=== PATIENT | female | born 1965 | race Two or more races ===

== ENCOUNTER 2024-08-19 00:19 | Emergency (ER) | payer MEDICAID, SELFPAY ==
[2024-08-19 00:37] VITALS: BP 122/68; PULSE 88; RESP 18; TEMP 36.9; O2SAT 98; BMI 18.1
--- NOTE | 2024-08-19 00:41 | XR_ITS ---
Examination: PA lateral chest 2 views Technique: Upright PA lateral chest 2 views Exam date and time: August 19, 2024 1252 hrs. Indications: Coughing fever weakness beginning 3 days ago. Findings: Normal heart size Moderate hyperexpansion Mild opacity in the lingular segment on the lateral view Right lung clear Impression: Early pneumonia lingular segment left upper lobe
--- NOTE | 2024-08-19 00:43 | PD.EDRME ---
Rapid Medical Screening Exam RME Arrival date/time: 08/19/24 00:19 59 year old female present to Ed for c/o of cough for 3 days. + n/v I have greeted and performed a focused initial assessment of this patient. A comprehensive ED assessment and evaluation of the patient, analysis of all test results, and completion of the medical decision making process will be conducted by additional ED providers. Chief Complaint: Flu Like Symptoms Time Seen by Provider: 08/19/24 00:23 Vital signs: Vital Signs Temperature 98.5 F 08/19/24 00:37 Pulse Rate 88 08/19/24 00:37 Respiratory Rate 18 08/19/24 00:37 Blood Pressure 122/68 08/19/24 00:37 Pulse Oximetry (%) 98 08/19/24 00:37 Oxygen Delivery Method Room Air 08/19/24 00:37
[2024-08-19] MEDS: ONDANSETRON ODT 4 MG TABRAP PO ×2 (01:04→04:43)
[2024-08-19 01:16] LABS: Basophils % (Auto) 0 % (0-2.5); Eosinophils # (Auto) 0.2 Thou/mm3 (0.0-0.5); Eosinophils % (Auto) 1 % (0-10); Hematocrit 42.1 % (36.0-46.0); Hemoglobin 14.2 g/dL (12.0-16.0); Immature Granulocytes % (Auto) 0 % (0-0); Immature Granulocytes Auto 0.04 Thou/mm3 (0.00-0.00); Lymphocytes # (Auto) 1.5 Thou/mm3 (1.0-4.8); Lymphocytes % (Auto) 11 % (10-50); Mean Corpuscular HGB Conc 33.7 g/dl (31.0-37.0); Mean Corpuscular Volume 86 fL (80-100); Monocytes # (Auto) 0.9 Thou/mm3 (0.0-0.8); Monocytes % (Auto) 6 % (0-12); Neutrophils # (Auto) 11.6 Thou/mm3 (1.8-7.7); Neutrophils % (Auto) 81 % (37-80); Nucleated Red Blood Cell % 0 /100 WBC (0); Platelet Count 272 Thou/mm3 (140-440); RDW Standard Deviation 40.3 fL (36.4-46.3); Red Blood Count 4.89 Miln/mm3 (4.00-5.20); White Blood Count 14.3 Thou/mm3 (3.6-11.0)
[2024-08-19 01:31] LABS: Alanine Aminotransferase 18 U/L (10-49); Albumin, Serum 4.6 gm/dL (3.4-4.8); Albumin/Globulin Ratio 1.4 (1.2-2.2); Alkaline Phosphatase 121 U/L (46-116); Anion Gap 9 (7-16); Aspartate Amino Transferase 24 U/L (0-34); BUN/Creatinine Ratio 22 Ratio (12-20); Bilirubin,Total 0.4 mg/dL (0.3-1.2); Blood Urea Nitrogen 13 mg/dL (9-23); Calcium 8.7 mg/dL (8.3-10.6); Calcium (Corrected) 8.7 mg/dL (8.5-10.1); Carbon Dioxide 23.5 mMol/L (20.0-31.0); Chloride 106 mMol/L (98-107); Creatinine (Component) 0.6 mg/dL (0.6-1.3); Estimated Creatinine Clearance 63.5 mL/min (>60); Globulin 3.3 gm/dL (2.3-3.5); Glucose 118 mg/dL (74-106); Lipase 50 U/L (12-53); Osmolality,Calculated 276 (275-295); Potassium 3.2 mMol/L (3.4-5.1); Sodium 138 mMol/L (136-145); Total Protein 7.9 gm/dL (5.7-8.2); Troponin I < 0.002 ng/mL (0.0-0.045); eGFR > 60 See Note
--- NOTE | 2024-08-19 02:16 | PD.EDURI ---
Upper Respiratory Inf. RME/HPI General Chief Complaint: Flu Like Symptoms Stated Complaint: COUGHING X 3 DAYS,VOMITING Time Seen by Provider: 08/19/24 00:23 Arrival date/time: 08/19/24 00:19 RME / HPI RME / HPI Narrative: 08/19/24 00:19 59 year old female present to Ed for c/o of cough for 3 days. + n/v I have greeted and performed a focused initial assessment of this patient. A comprehensive ED assessment and evaluation of the patient, analysis of all test results, and completion of the medical decision making process will be conducted by additional ED providers. ------ Dr. Carlos?s Main ED Evaluation: 59yo female presents to the ED for complaints of nausea and vomiting x 1 day. Patient states she's had 5 episodes of vomiting, 3 being at home and 2 here in the ED. Patient reports associated 2 episodes of diarrhea. Patient denies any hematemesis, hematochezia, fever, chills or any other associated symptoms. She denies any history of tobacco use. Patient states she has 2 family members at home with similar symptoms. Related Data Previous Rx's ?Medication ?Instructions ?Recorded benzonatate 100 mg capsule 100 mg PO TID #14 caps 01/17/23 ondansetron 4 mg disintegrating 4 mg PO Q8H PRN nausea and 08/19/24 tablet vomiting #10 tabs Allergies Allergy/AdvReac Type Severity Reaction Status Date / Time Penicillins Allergy Unknown Verified 08/19/24 00:22 Review of Systems Review of Systems Systems Reviewed: All systems reviewed, normal except as documented Narrative Review of Systems: Gen: No fever, no chills, no weight loss EYES: No discharge, no visual changes, no pain HEENT: No ear pain, no congestion, no sore throat PULM: No shortness of breath, no cough, no congestion CV: No chest pain, no dyspnea on exertion, no palpitations GI: + nausea, + vomiting, + diarrhea, no pain, no constipation : No frequency, no urgency, no dysuria Musc/skel: No joint pain, no back pain Skin: No rash Psyc: No hallucinations, no depression Heme/Lymph: No easy bleeding or bruising tendencies Neuro: No weakness, no headache Past Medical History Past Medical History CARDIAC: Negative Congestive Heart Failure RESPIRATORY: Positive Pneumonia; Negative Chronic Obstructive Pulmonary Disease (COPD) GENITOURINARY: Negative Renal Disease ENDOCRINE: Negative Diabetes Mellitus Type 1 or Diabetes Mellitus Type 2 HEMATOLOGIC: Positive Anemia OTHER HISTORY: Positive Blood Transfusions Surgical History SURGICAL: Positive Tubal Ligation Social History SMOKING STATUS: Never smoker SUBSTANCE USE: does not use ED Exam Narrative Physical exam: GENERAL APPEARANCE: alert and oriented x 4, well-developed, well-nourished, no acute distress HEENT: Normocephalic, atraumatic; pupils equal, round, reactive to light; EOMI; mucous membranes pink, moist; oropharynx clear NECK: Supple LUNGS: CTABL; no wheezes, no rales, no rhonchi HEART: Regular rate, regular rhythm; normal S1, S2; no murmurs ABDOMEN: non distended; normal BS; soft, no tenderness, no guarding, no rebound; no masses, no organomegaly, no hernia BACK: no CVA tenderness EXTREMITIES: atraumatic; no edema NEUROLOGIC: awake; alert and oriented x4; cranial nerves II-XII grossly intact; no focal sensory or motor deficits PSYCHIATRIC: appropriate mood and affect SKIN: warm, dry, normal color; no rashes Course Course Course Narrative: CXR is ordered for determining the etiology of cough. 0541: Patient passed her PO trial. Quality Measures none Orders Category Date Time Status Bedside COVID-19 Antigen Test NOW Care 08/19/24 00:41 Completed Bedside Influenza A&B Antigen Test NOW Care 08/19/24 00:42 Completed EKG (ED ONLY) *Do not use* NOW Care 08/19/24 00:42 Completed EKG (ED Only) Stat Exams 08/19/24 00:41 Ordered XR abdomen flat and uprght Stat Exams 08/19/24 04:30 Completed XR chest 2V Stat Exams 08/19/24 00:41 Completed CBC Stat Lab 08/19/24 01:04 Completed CMP [Comprehensive Metabolic Panel] Stat Lab 08/19/24 01:04 Completed Lipase Stat Lab 08/19/24 01:04 Completed Troponin I Stat Lab 08/19/24 01:04 Completed Ondansetron Odt [Zofran Odt] Med 08/19/24 00:41 Discontinued 4 mg PO X1 ONE Ondansetron Odt [Zofran Odt] Med 08/19/24 04:30 Discontinued 4 mg PO X1 ONE Vital Signs Vital signs: Vital Signs Temperature 98.5 F 08/19/24 00:37 Pulse Rate 88 08/19/24 00:37 Respiratory Rate 18 08/19/24 00:37 Blood Pressure 122/68 08/19/24 00:37 Pulse Oximetry (%) 98 08/19/24 00:37 Oxygen Delivery Method Room Air 08/19/24 00:37 Pulse ox is 98% on room air, which is normal according to my interpretation. Upper Respiratory Infection MDM Narrative MDM Narrative:: Scribe Attestation: 08/19/24 - Angela Guerrier am scribing for and in the presence of Dr. Carlos. Patient data External records reviewed:: [facility] previous records (Per chart review, patient was seen here on 01/17/23 for URI.) Clinical information provided by:: patient Social determinants that could affect healthcare access:: none Patient has the following chronic illnesses:: none How is presenting disease/condition affected by chronic disease/condition?: no chronic disease Evaluation data The following diagnostics were reviewed and interpreted by me:: lab results, radiology exam(s) and EKG tracing(s) Lab and/or radiology exams considered but not ordered:: none Interpretation Summary: WBC count is elevated at 14.3, Potassium is slightly low at 3.2, troponin is normal, Bedside COVID and Influenza are negative, according to my interpretation. CXR is negative for cardiomegaly, infiltrates, pleural effusions or any other acute cardiopulmonary findings, according to my interpretation. EKG done at 0049, sinus rhythm, rate of 85, normal axis, normal intervals, no acute ST or T wave changes, no STEMI, according to my interpretation. Medications / Prescriptions Medications or Prescriptions considered but not ordered:: none Medication administrations:: Medication Administration History Discontinued Medications Ondansetron HCl (Ondansetron Odt 4 Mg Tabrap) 4 mg PO X1 ONE; Protocol Stop: 08/19/24 00:42 Last Admin: 08/19/24 01:04 Dose: 4 mg Documented By: HERBIE Ondansetron HCl (Ondansetron Odt 4 Mg Tabrap) 4 mg PO X1 ONE; Protocol Stop: 08/19/24 04:31 Last Admin: 08/19/24 04:43 Dose: 4 mg Documented By: DB see above Consultations Consultation(s) initiated? (list below): No Diagnosis Upper Respiratory Differential Diagnosis: viral infection, influenza and other (COVID,) Most likely diagnosis given after review of the tests above:: see below Admission Indicated Admission indicated?: not indicated Admission Request Was there a request for admission?: No Disposition Plan Disposition Plan: Discharge Discharge Attestation Discharge Attestation: The patient and all family members were given an opportunity to ask questions and understood the discharge instructions. Discharge instructions specifically effects, indications for sooner follow up or return to the emergency department, and the expected course of current diagnosis. Patient condition: Stable Discharge Plan Plan Patient Disposition: HOME (Self Care) Prescriptions/Referrals Prescriptions/Med Rec: New ondansetron 4 mg tablet,disintegrating 4 mg PO Q8H PRN (Reason: nausea and vomiting) Qty: 10 0RF No Action benzonatate 100 mg capsule 100 mg PO TID Qty: 14 0RF Referrals: Thea Pierre [Primary Care Provider] - In 1 week Problem List Clinical Impression: Vomiting Patient/Caregiver Discharge Instructions Education Materials: ED Vomiting (Adult) Print Language: Mexican Stand Alone Forms: Jessica Award Info., Patient Portal Info Letter
--- NOTE | 2024-08-19 04:30 | XR_ITS ---
Examination: AP chest single view Technique one AP portable supine chest single view Exam date and time: August 19, 2024 0442 hrs. Indications: Nausea vomiting beginning 2 days ago. Findings: Moderate stool throughout the colon No obstruction No free air Moderate osteopenia Impression: Moderate stool throughout the colon
[2024-08-19 04:37] VITALS: BP 114/67; PULSE 87; RESP 18; TEMP 36.8; O2SAT 96
[2024-08-19 06:00] VITALS: BP 114/79; PULSE 67; RESP 16; TEMP 36.9; O2SAT 99
== END 2024-08-19 05:59 | disposition home or self-care (01) ==
PROVIDERS: Physician Assistant; Emergency Provider Emergency Medicine; PCP Physician Assistant
DX: R11.2 Nausea with vomiting, unspecified (principal); R05.9 Cough, unspecified; R19.7 Diarrhea, unspecified
CPT/HCPCS: 36415; 71046; 74019; 80053; 83690; 84484; 85025; 87400; 87811; 93005; 99283; Q0162

== ENCOUNTER → 2024-08-28 | Outpatient (CLI) | payer MEDICAID, SELFPAY ==
--- NOTE | 2024-08-28 12:40 | XR_ITS ---
Examination: Bone densitometry Date and time of exam:August 28, 2024 1314 hours INDICATIONS: Menopause age 48 Technique: Lumbar spine and hip total bone mineralization values of an calculated. Peak reference and age match control results have been displayed. Findings: Lumbar spine total bone mineralization is0.536 gm/cm2. This is 4.6 standard deviations below peak reference. This is 3.1 standard deviations below age-matched controls. Hip total bone mineralization is 0.535 gm/cm2 This is 3.2 standard deviations below peak reference. This is 2.2 standard deviations below age-matched controls Impression: There is osteoporosis based on lumbar spine measurements. There is osteoporosis based on hip measurements
== END | disposition home or self-care (01) ==
PROVIDERS: PCP Nurse Practitioner Family; Referring Provider Nurse Practitioner Family; Visit Provider Nurse Practitioner Family
DX: Z13.820 Encounter for screening for osteoporosis (principal); M81.0 Age-related osteoporosis without current pathological fracture
CPT/HCPCS: 77080

== ENCOUNTER 2024-09-01 09:10 | Emergency (ER) | payer MEDICAID, SELFPAY ==
[2024-09-01 09:25] VITALS: BP 110/71; PULSE 80; RESP 16; TEMP 36.5; O2SAT 97; BMI 20.1
--- NOTE | 2024-09-01 09:25 | PD.EDADULT ---
ED General RME/HPI General Chief complaint: General Adult/Misc Complain Stated complaint: sent by pcp for cxr Time Seen by Provider: 09/01/24 09:24 Source: patient, RN notes reviewed and old records reviewed Arrival date/time: 09/01/24 09:10 Mode of arrival: ambulatory Limitations: no limitations RME / HPI RME / HPI narrative: 59yof presents to ED for CXR, referred by PCP. Patient was evaluated and treated in ED 08/19/2024 for nausea and vomiting with mild cough. CXR at that time showed possible early pneumonia, her PCP prescribed an antibiotic at ER follow-up visit which she completed 3 days ago. Patient states cough has resolved and she is feeling much better. No fever, shortness of breath or chest pain reported. Sent for CXR to to confirm resolve of pneumonia. Related Data Previous Rx's ?Medication ?Instructions ?Recorded benzonatate 100 mg capsule 100 mg PO TID #14 caps 01/17/23 ondansetron 4 mg disintegrating 4 mg PO Q8H PRN nausea and 08/19/24 tablet vomiting #10 tabs Allergies Allergy/AdvReac Type Severity Reaction Status Date / Time Penicillins Allergy Unknown Verified 08/19/24 00:22 Review of Systems Review of Systems Systems Reviewed: All systems reviewed, normal except as documented Constitutional Constitutional: Denies chills, Denies fever(s) and Denies headache(s) ENT Ears, Nose, Mouth, and Throat: Denies dizziness and Denies headache(s) Cardiovascular Cardiovascular: Denies chest pain and Denies dyspnea Respiratory Respiratory: Denies cough and Denies dyspnea Gastrointestinal Gastrointestinal: Denies nausea and Denies vomiting Musculoskeletal Musculoskeletal: Denies myalgias Neurologic Neurologic: Denies dizziness and Denies headache(s) Past Medical History Surgical History OTHER SURGICAL HX: Appendectomy, tubal Social History SMOKING STATUS: Never smoker SUBSTANCE USE: does not use ALCOHOL: Never Past Medical History Comments PMH COMMENT: Denies past medical history ED Exam General Limitations: Present no limitations General appearance: Present alert and in no apparent distress Head Head exam: Present atraumatic and normocephalic Eye Eye exam: Present normal appearance, PERRL and EOMI ENT ENT exam: Present normal exam and mucous membranes moist Neck Neck exam: Present normal inspection and full ROM Chest Chest inspection: Present normal inspection and symmetric chest wall rise Respiratory Respiratory exam: Present normal lung sounds bilaterally and other (No wheezing, rales or rhonchi); Absent respiratory distress Cardiovascular Cardiovascular exam: Present regular rate and normal rhythm Extremities Exam Extremities exam: Present normal inspection and full ROM Neurological Exam Neurological exam: Present alert and oriented X3 Psychiatric Psychiatric exam: Present normal affect and normal mood Skin Skin exam: Present warm, dry, intact and normal color Course Quality Measures none Orders Category Date Time Status CXR2 [XR chest 2V] Stat Exams 09/01/24 09:26 Completed Vital Signs Vital signs: Vital Signs Temperature 97.7 F 09/01/24 09:25 Pulse Rate 80 09/01/24 09:25 Respiratory Rate 16 09/01/24 09:25 Blood Pressure 110/71 09/01/24 09:25 Pulse Oximetry (%) 97 09/01/24 09:25 Oxygen Delivery Method Room Air 09/01/24 09:25 MDM Patient data External records reviewed:: [facility] [place] previous records (ED visit 08/19/2024 for nausea and vomiting) Clinical information provided by:: patient Social determinants that could affect healthcare access:: other (specify) (Acculturation difficulty) Patient has the following chronic illnesses:: none How is presenting disease/condition affected by chronic disease/condition?: no chronic disease Evaluation data The following diagnostics were reviewed and interpreted by me:: radiology exam(s) Lab and/or radiology exams considered but not ordered:: covid/flu: Results would not affect treatment plan Interpretation Summary: CXR: No pneumonia per my read Medications Medications considered but not ordered:: No antibiotics recommended at this time Medication administrations:: na Consultations Consultation(s) initiated? (list below): No Diagnosis Differential Diagnosis ED Complaint MDM: URI, pneumonia, bronchitis, normal chest x-ray Most likely diagnosis given after review of the tests above:: Normal chest x-ray Admission Indicated Admission indicated?: not indicated Explain why admission is indicated or not indicated:: Patient is clinically stable for outpatient management Admission Request Was there a request for admission?: No Disposition Plan Disposition Plan: Discharge Discharge Attestation Discharge Attestation: The patient and all family members were given an opportunity to ask questions and understood the discharge instructions. Discharge instructions specifically effects, indications for sooner follow up or return to the emergency department, and the expected course of current diagnosis. Patient condition: Stable Medical Decision Making MDM Narrative MDM Narrative: 59yof presents to ED for CXR, referred by PCP. Patient was evaluated and treated in ED 08/19/2024 for nausea and vomiting with mild cough. CXR at that time showed possible early pneumonia, her PCP prescribed an antibiotic at ER follow-up visit which she completed 3 days ago. Patient states cough has resolved and she is feeling much better. No fever, shortness of breath or chest pain reported. Sent for CXR to to confirm resolve of pneumonia. No evidence of pneumonia per my read. Patient is well-appearing, afebrile, vitals are stable. No evidence of respiratory distress or hypoxia. Cough has completely resolved. Encouraged follow-up with PCP as needed. Stable for discharge, RTED precautions given. Differential Diagnosis Differential Diagnosis: URI, pneumonia, bronchitis, normal chest x-ray Discharge Plan Plan Patient Disposition: HOME (Self Care) Patient condition on transfer: Stable Prescriptions/Referrals Prescriptions/Med Rec: No Action ondansetron 4 mg tablet,disintegrating 4 mg PO Q8H PRN (Reason: nausea and vomiting) Qty: 10 0RF benzonatate 100 mg capsule 100 mg PO TID Qty: 14 0RF Referrals: No Primary/Family,Physician [Primary Care Provider] - In 1 week Problem List Clinical Impression: Cough in adult Patient/Caregiver Discharge Instructions Print Language: Bengali Stand Alone Forms: Jessica Award Info., Patient Portal Info Letter PA/ANTWON Supervising Physician PA/ANTWON Supervising Physician: Alia
--- NOTE | 2024-09-01 09:26 | XR_ITS ---
Examination: PA lateral chest 2 views TECHNIQUE: Upright PA lateral chest 2 views Exam date 9: September 01, 2024 0942 hours Comparison August 19, 2024 INDICATIONS: Coughing beginning 2 weeks ago FINDINGS: Mild pneumonia versus scarring in the lingular segment left upper lobe Normal heart size Moderate hyperexpansion Prominent osteopenia IMPRESSION: Scarring versus mild pneumonia in the lingular segment left upper lobe, clinical correlation
== END 2024-09-01 10:18 | disposition home or self-care (01) ==
PROVIDERS: Emergency Provider Emergency Medicine
DX: R05.9 Cough, unspecified (principal)
CPT/HCPCS: 71046; 99283